=== PATIENT | female | born 2000 | race Caucasian/White ===

== ENCOUNTER 2022-08-20 08:36 | Outpatient (RCR) | payer BC, OTHER | END 2022-09-03 | disposition home or self-care (01) | LOC: ONC 08:36 | PROVIDERS: ATTEND Internal Medicine Hematology & Oncology | DX: D75.839 Thrombocytosis, unspecified (principal) | CPT/HCPCS: 99204 ==

== ENCOUNTER → 2022-10-01 | Outpatient (RCR) | payer BC, OTHER ==
[2022-09-30 16:29] LABS: BASOPHILS # (AUTO) 0.1 10^3/uL (0.0-0.1); BASOPHILS % (AUTO) 1 % (0-10); EOSINOPHILS # (AUTO) 0.8 10^3/uL (0.0-0.3); EOSINOPHILS % (AUTO) 7 % (0-10); HEMATOCRIT 42 % (35-52); HEMOGLOBIN 14.2 g/dL (11.5-16.0); LYMPHOCYTES # (AUTO) 4.4 10^3/uL (1.0-4.0); LYMPHOCYTES % (AUTO) 42 % (12-44); MEAN CORPUSCULAR HEMOGLOBIN 30 pg (25-34); MEAN CORPUSCULAR HGB CONC 34 g/dL (32-36); MEAN CORPUSCULAR VOLUME 90 fL (80-99); MEAN PLATELET VOLUME 9.3 fL (9.0-12.2); MONOCYTES # (AUTO) 0.8 10^3/uL (0.0-1.0); MONOCYTES % (AUTO) 8 % (0-12); NEUTROPHILS # (AUTO) 4.5 10^3/uL (1.8-7.8); NEUTROPHILS % (AUTO) 43 % (42-75); PLATELET COUNT 377 10^3/uL (130-400); WHITE BLOOD COUNT 10.7 10^3/uL (4.3-11.0)
== END | disposition home or self-care (01) ==
LOC: ONC 09-30 16:05
PROVIDERS: ATTEND Internal Medicine Hematology & Oncology
DX: D64.9 Anemia, unspecified (principal)
CPT/HCPCS: 36415; 82728; 83540; 83550; 85025

== ENCOUNTER → 2023-06-27 | Outpatient (CLI) | payer BC ==
--- NOTE | 2023-06-27 09:56 | Diagnostic Imaging Report ---
INDICATION: Right-sided pneumothorax 2 weeks ago. Time of Exam: 9:26 AM No prior studies are available for comparison. Heart size is normal. Lungs are clear. No infiltrates are detected. There is no effusion or pneumothorax. IMPRESSION: No acute abnormality is detected. Dictated by: Dictated on workstation # [id number]
== END ==
LOC: RAD 09:02
PROVIDERS: ATTEND Family Medicine
DX: S27.399A Other injuries of lung, unspecified, initial encounter (principal); X58.XXXA Exposure to other specified factors, initial encounter
CPT/HCPCS: 71046